=== PATIENT | female | born 1980 ===

== ENCOUNTER 2019-12-01 16:48 | Emergency (ER) | payer OTHER ==
[~2019-12-01] VITALS: Ht 149.9 cm; Wt 68.0 kg
[~2019-12-01 16:48] MED LIST: CATAFLAM50 MG PO; DELZICOL400 M1; ORPH100T PO; PNEU16DI2; PROTONIX20 MG; SEPTRA DS TABLE1 TAB PO
[2019-12-01] MEDS ORDERED: PEPCID20 MG (17:02)
== END 2019-12-01 20:56 | disposition home or self-care (01) ==
LOC: ER 16:48
DX: R42 Dizziness and giddiness (principal)